=== PATIENT | male | born 1940 | race Caucasian/White ===

== ENCOUNTER 2024-07-03 11:11 | Emergency (ER) | payer MEDICARE ==
[~2024-07-03] VITALS: Ht 157.5 cm; Wt 72.6 kg
[2024-07-03 11:12] VITALS: BP 100/70; PULSE 66; RESP 18; TEMP 98; O2SAT 99
[2024-07-03] MEDS: NACL 0.9% 1,000 ML IV ONE (12:12)
[2024-07-03 12:18] LABS: BASOPHILS % (AUTO) 0.5 % (0.0-2.0); EOSINOPHILS # (AUTO) 0.3 K/uL (0-0.4); EOSINOPHILS % (AUTO) 3.1 % (0.0-4.0); HEMATOCRIT 28.2 % (36-52); HEMOGLOBIN 9.5 g/dL (12.0-18.0); LYMPHOCYTES # (AUTO) 0.9 K/uL (2.0-11.5); LYMPHOCYTES % (AUTO) 10.4 % (20.5-51.1); MEAN CORPUSCULAR HEMOGLOBIN 31 pg (27-31); MEAN CORPUSCULAR HGB CONC 34 g/dL (33-37); MEAN CORPUSCULAR VOLUME 90.3 fL (80-94); MONOCYTES # (AUTO) 0.6 K/uL (0.8-1.0); MONOCYTES % (AUTO) 6.7 % (1.7-9.3); NEUTROPHILS # (AUTO) 7.1 K/uL (1.8-7.7); NEUTROPHILS % (AUTO) 79.3 % (42.2-75.2); PLATELET COUNT (AUTO) 246 K/uL (140-450); RED BLOOD CELL COUNT(AUTO) 3.13 MIL/uL (4.20-6.10); RED CELL DISTRIBUTION WIDTH 14.7 % (11.6-13.7); WHITE BLOOD COUNT (AUTO) 8.9 K/uL (4.8-10.8)
[2024-07-03 12:46] LABS: BILIRUBIN,URINE 1+ (NEGATIVE); BLOOD, URINE TRACE-I (NEGATIVE); COLOR,URINE YELLOW (YELLOW); LEUKOCYTE ESTERASE ,URINE NEGATIVE (NEGATIVE); NITRITE, URINE NEGATIVE (NEGATIVE); PH,URINE 5.5 (5.0-9.0); PROTEIN,URINE 2+ (NEGATIVE); UGLUCOSE NEGATIVE (NEGATIVE); UROBILINOGEN,URINE 0.2 EU/dL (0.2 - 1)
[2024-07-03 12:47] LABS: APPEARANCE,URINE SLIGHTLY HAZY (CLEAR)
[2024-07-03 12:48] LABS: ANION GAP 13.8 (8-16); CALCIUM 9.1 mg/dL (8.5-10.1); CARBON DIOXIDE 27.1 mmol/L (21-32); CHLORIDE 108 mmol/L (98-107); CREATININE 1.5 mg/dL (0.6-1.3); GLUCOSE 96 mg/dL (74-106); POTASSIUM 3.9 mmol/L (3.5-5.1); SODIUM SERUM 145 mmol/L (136-145); UREA NITROGEN, BLOOD 40 mg/dL (7-18)
[2024-07-03 12:50] LABS: ICTOTEST NEGATIVE (NEGATIVE)
[2024-07-03 12:52] LABS: BACTERIA,URINE 2+ /HPF (None Seen); MUCUS,URINE 2+ /LPF (None Seen); SQUAMOUS EPITHELIAL CELL,UR 4-10 (MOD) /LPF (0-3 (FEW)); YEAST,URINE Rare /HPF (None Seen)
[2024-07-03 13:03] LABS: BARBITURATE, URINE NEGATIVE ng/ml (NEG <=200)
[2024-07-03 13:05] LABS: AMPHETAMINE, URINE NEGATIVE ng/ml (NEG <=1000)
[2024-07-03 13:06] LABS: BENZODIAZEPINE, URINE POSITIVE ng/mL (NEG <=200)
[2024-07-03 13:07] LABS: CANNABINOID, URINE NEGATIVE ng/mL (NEG <=50); COCAINE, URINE NEGATIVE ng/mL (NEG <=300); OPIATE, URINE NEGATIVE ng/mL (NEG <=2000); PHENCYCLIDINE SCREEN,URINE NEGATIVE ng/mL (NEG <=25)
[2024-07-03 13:09] LABS: FLU A ANTIGEN negative (NEGATIVE); FLU B ANTIGEN negative (NEGATIVE)
[2024-07-03 13:18] LABS: ALANINE AMINOTRANSFERASE 18 U/L (12-78); ALBUMIN 2.4 g/dL (3.4-5.0); ALKALINE PHOSPHATASE 99 U/L (50-136); ASPARTATE AMINOTRANSFERASE 25 U/L (15-37); BILIRUBIN,DIRECT 0.1 mg/dL (0.0-0.3); CREATINE KINASE, TOTAL 132 U/L (39-308); TOTAL BILIRUBIN 0.6 mg/dL (0.0-1.0); TOTAL PROTEIN, SERUM 6.2 g/dL (6.4-8.2)
[2024-07-03 13:21] LABS: SALICYLATE < 2.8 mg/dL (2.8-20.0)
[2024-07-03 13:22] LABS: ACETAMINOPHEN < 0.5 ug/ml (10-30)
[2024-07-03 13:23] LABS: ALCOHOL, BLOOD < 3 mg/dL (<10)
[2024-07-03] MEDS ORDERED: cefTRIAXone 1,000 MG VIAL ONE (13:31)
[2024-07-03] MEDS: ENALAPRILAT 2.5 MG/2 ML VIAL IVP ONE (14:47)
[2024-07-03 18:00] VITALS: TEMP 97.8
[2024-07-03 19:00] VITALS: BP 164/77; PULSE 64; RESP 16; O2SAT 97
== END 2024-07-03 19:51 | disposition short-term general hospital (02) ==
LOC: MED 11:11
DX: N39.0 Urinary tract infection, site not specified (principal); E11.22 Type 2 diabetes mellitus with diabetic chronic kidney disease; I12.9 Hypertensive chronic kidney disease with stage 1 through stage 4 chronic kidney disease, or unspecified chronic kidney disease; N18.9 Chronic kidney disease, unspecified; Z20.822 Contact with and (suspected) exposure to COVID-19; R41.82 Altered mental status, unspecified; F03.90 Unspecified dementia, unspecified severity, without behavioral disturbance, psychotic disturbance, mood disturbance, and anxiety; Z87.81 Personal history of (healed) traumatic fracture
CPT/HCPCS: 36415; 70450; 71045; 80048; 80076; 80305; 81001; 82140; 82550; 83605; 84443; 84484; 85025; 87040; 87086; 87426; 87804; 93005; 96361; 96365; 96375; 99285; G0480; G0482; J0696; J3490; J7030